=== PATIENT | male | born 1990 | race African-American/Black ===

== ENCOUNTER 2016-11-03 00:51 | Emergency (ER) | payer SELFPAY ==
[~2016-11-03] VITALS: Ht 172.7 cm; Wt 90.7 kg
[2016-11-03 01:03] VITALS: BP 124/77
[2016-11-03] MEDS ORDERED: HYDR15CR20 TP (01:19)
--- NOTE | 2016-11-03 01:20 | PHYS DOC ---
Past Medical History Past Medical History: No Pertinent History Past Surgical History: No Surgical History Alcohol Use: None Drug Use: None Adult General Chief Complaint Chief Complaint: SKIN RASH/ABSCESS HPI HPI 25-year-old male presenting to the emergency department today with left upper extremity rash. This been present for 2 days. It is itchy. He denies any recent activities in the [place] or insect bites. Location left upper extremity. Duration constant. Associated with itching. Alleviated by antibiotics topical medication [id number]. Review of systems is negative for fevers chills nausea vomiting. All other review of systems is negative unless otherwise noted in history of present illness. Pertinent physical exam findings: The patient's left upper extremity is warm and well perfused with a palpable pulse. There is a maculopapular rash suggestive of contact dermatitis on the left upper arm. ED course: 25-year-old male presenting to the emergency department with signs and symptoms suggestive of contact dermatitis of the left upper arm versus heat rash. Recommended [id number]-[id number] topical corticosteroid cream along with anti- itch cream [id number] to follow-up with PCP. The patient was then discharged home in stable condition to follow up with their primary care physician over the next 2-3 days. They were to return if their symptoms worsened or if they were concerned for any reason. [id number] discharge instructions and return precautions were given. Patient's questions were answered to their satisfaction. Patient is comfortable plan. Review of Systems Review of Systems SEE ABOVE. Allergies Allergies Allergies Coded Allergies Type Severity Reaction Last Updated Verified No Known Drug Allergies 11/03/16 No Physical Exam Physical Exam Constitutional: Well developed, well nourished, no acute distress, non-toxic appearance. [] HENT: Normocephalic, atraumatic, bilateral external ears normal, oropharynx moist, no oral exudates, nose normal. [] Eyes: PERRLA, EOMI, conjunctiva normal, no discharge. [] Neck: Normal range of motion, no tenderness, supple, no stridor. [] Cardiovascular:Heart rate regular rhythm, no murmur [] Lungs & Thorax: Bilateral breath sounds clear to auscultation [] Abdomen: Bowel sounds normal, soft, no tenderness, no masses, no pulsatile masses. [] Skin: Warm, dry, no erythema, no rash. [] Back: No tenderness, no CVA tenderness. [] Extremities: see above Neurologic: Alert and oriented X 3, normal motor function, normal sensory function, no focal deficits noted. [] Psychologic: Affect normal, judgement normal, mood normal. [] Current Patient Data Vital Signs Vital Signs Date Time Temp Pulse Resp B/P (MAP) Pulse Ox O2 Delivery O2 Flow Rate FiO2 11/03/16 01:03 97.8 60 16 100 Room Air 97.8 EKG EKG [] Radiology/Procedures Radiology/Procedures [] Course & Med Decision Making Course & Med Decision Making Pertinent Labs and Imaging studies reviewed. (See chart for details) [] Dragon Disclaimer Dragon Disclaimer This electronic medical record was generated, in whole or in part, using a voice recognition dictation system. Departure Departure Impression: Primary Impression: Contact dermatitis Disposition: HOME, SELF-CARE Condition: STABLE Referrals: HEDY PALOMARES MD Patient Instructions: Contact Dermatitis, Heat Rash Additional Instructions: Thank you for allowing us to participate in your care today. Followup with your primary care physician in 3 days if your symptoms do not improve. If you do not have a primary care provider you can ask for a list of our primary care providers. Return to the emergency department you have any new or concerning findings. This should be evaluated by the primary care physician and any necessary consulting services for continued management within a few days after discharge. Return to emergency room if you have any new or concerning symptoms including but not limited to fever, chills, nausea, vomiting, intractable pain, any new rashes, chest pain, shortness of air, uncontrolled bleeding, difficulty breathing, and/or vision loss. Scripts Hydrocortisone Valerate (HYDROCORTISONE VALERATE) 15 Gm Cream..g. 1 JR TP BID, #15 GM Prov: TOD LR MD 11/03/16 TOD LR MD Nov 03, 2016 01:20
== END 2016-11-03 01:37 | disposition home or self-care (01) ==
LOC: ER 00:51
DX: L25.9 Unspecified contact dermatitis, unspecified cause (principal)
CPT/HCPCS: 99283